=== PATIENT | male | born 1995 ===

== ENCOUNTER 2025-04-14 16:19 | Outpatient (CLI) | payer OTHER, SELFPAY | END 2025-04-14 16:20 | disposition home or self-care (01) | LOC: AMB 04-23 14:13 | PROVIDERS: Visit Provider Family Medicine | DX: S89.92XA Unspecified injury of left lower leg, initial encounter (principal); V49.88XA Car occupant (driver) (passenger) injured in other specified transport accidents, initial encounter; Y92.410 Unspecified street and highway as the place of occurrence of the external cause | CPT/HCPCS: A0998 ==